=== PATIENT | male | born 1955 | race Two or more races ===

== ENCOUNTER → 2018-05-15 | Outpatient (CLI) | payer MEDICARE, MEDICAID ==
[~2018-05-15] MED LIST: GADOBUTROL 7.5 MMOL/7.5 ML VIAL ONE
== END | disposition home or self-care (01) ==
LOC: CFH 14:18
PROVIDERS: ATTEND Nurse Practitioner Family
DX: I63.9 Cerebral infarction, unspecified (principal)
CPT/HCPCS: 70544; 70549; 82565; A9585

== ENCOUNTER → 2018-05-23 | Outpatient (CLI) | payer MEDICARE, OTHER | END | disposition home or self-care (01) | LOC: CFH 09:24 | PROVIDERS: ATTEND Nurse Practitioner Family | DX: I63.9 Cerebral infarction, unspecified (principal); I10 Essential (primary) hypertension; E78.5 Hyperlipidemia, unspecified; E11.9 Type 2 diabetes mellitus without complications; R06.02 Shortness of breath | CPT/HCPCS: 78452; 93017; 93306; A9502 ==

== ENCOUNTER → 2018-08-20 | Outpatient (CLI) | payer MEDICARE, OTHER ==
[~2018-08-20] MED LIST changes: +ASPI-496 PO; +ATOR-2 PO; -GADOBUTROL 7.5 MMOL/7.5 ML VIAL ONE; +INSULIN SC; +LOSA50TA7 PO; +METF500T17 PO; +TAMS0.4C2 PO
[2018-08-20 09:45] LABS: BASOPHILS # (AUTO) 0.05 x10^3/uL (0-0.1); BASOPHILS % (AUTO) 1 % (0-1); EOSINOPHILS # (AUTO) 0.09 x10^3/uL (0-0.4); EOSINOPHILS % (AUTO) 1 % (1-7); LYMPHOCYTES # (AUTO) 1.44 x10^3/uL (1-3.4); LYMPHOCYTES % (AUTO) 21 % (22-44); MD NO; MEAN CORPUSCULAR HEMOGLOBIN 30.3 pg (27.5-34.5); MEAN CORPUSCULAR HGB CONC 32.9 g/dL (33.2-36.2); MEAN CORPUSCULAR VOLUME 92.1 fL (81-97); MEAN PLATELET VOLUME 9.4 fL (7.4-10.4); MONOCYTES # (AUTO) 0.57 x10^3/uL (0.2-0.8); MONOCYTES % (AUTO) 8 % (2-9); NEUTROPHILS # (AUTO) 4.88 x10^3/uL (1.8-6.8); NEUTROPHILS % (AUTO) 69 % (42-75); PLATELET COUNT 306 x10^3/uL (130-400); RED BLOOD COUNT 3.93 x10^6/uL (4.38-5.82)
[2018-08-20 09:46] LABS: MICROSCOPIC AUTO
[2018-08-20 09:58] LABS: ALANINE AMINOTRANSFERASE 351 U/L (12-78); ALBUMIN 3.7 g/dL (3.4-5.0); ANION GAP 4 mmol/L (5-15); CALCIUM 9.3 mg/dL (8.5-10.1); CHLORIDE 111 mmol/L (98-107); CREATININE 0.89 mg/dL (0.7-1.3)
[2018-08-20 10:00] LABS: ALKALINE PHOSPHATASE 276 U/L (45-117); BILIRUBIN,TOTAL 0.5 mg/dL (0.2-1.0)
== END | disposition home or self-care (01) ==
LOC: STAR 08:28
PROVIDERS: ATTEND Urology
DX: C61 Malignant neoplasm of prostate (principal)
CPT/HCPCS: 36415; 80053; 81001; 85025; 87086; 93005

== ENCOUNTER 2018-09-11 13:26 | Outpatient (CLI) | payer MEDICARE ==
[~2018-09-11 13:26] MED LIST changes: +LOSA50TA14 PO; -LOSA50TA7 PO; +OXYC-302 PO
== END 2018-09-11 23:59 | disposition home or self-care (01) ==
LOC: RAD 13:26
PROVIDERS: ATTEND Urology
DX: C61 Malignant neoplasm of prostate (principal); Z96.0 Presence of urogenital implants
CPT/HCPCS: 51600; 74430

== ENCOUNTER → 2018-11-13 | Outpatient (CLI) | payer MEDICARE ==
[~2018-11-13] MED LIST changes: +OMNIPAQUE 350 MG/ML, 100ML BOTTLE ONE
== END | disposition home or self-care (01) ==
LOC: PETCFH 08:16
PROVIDERS: ATTEND Urology
DX: C61 Malignant neoplasm of prostate (principal); M47.816 Spondylosis without myelopathy or radiculopathy, lumbar region
CPT/HCPCS: 74177; 78306; A9503; Q9967

== ENCOUNTER → 2018-11-19 | Outpatient (CLI) | payer MEDICARE ==
[~2018-11-19] MED LIST changes: -OMNIPAQUE 350 MG/ML, 100ML BOTTLE ONE
== END | disposition home or self-care (01) ==
LOC: CFH 07:31
PROVIDERS: ATTEND Nurse Practitioner Family
DX: K82.8 Other specified diseases of gallbladder (principal); R74.8 Abnormal levels of other serum enzymes
CPT/HCPCS: 76700

== ENCOUNTER → 2019-02-19 | Outpatient (CLI) | payer MEDICARE | END | disposition home or self-care (01) | LOC: PETCFH 13:07 | PROVIDERS: ATTEND Radiology Radiation Oncology | DX: C61 Malignant neoplasm of prostate (principal); R59.0 Localized enlarged lymph nodes | CPT/HCPCS: 78815; A9588 ==

== ENCOUNTER 2019-03-13 06:13 | Day surgery (SDC) | payer MEDICARE ==
[~2019-03-13] VITALS: Ht 167.6 cm; Wt 57.6 kg
[2019-03-13 06:52] VITALS: BP 133/65
[2019-03-13] MEDS ORDERED: SODIUM CHLORIDE 0.9% 1,000 ML IV SCH (06:55)
[2019-03-13] MEDS ORDERED: FENTANYL PF 100 MCG/2ML ONE (08:34)
[2019-03-13] MEDS ORDERED: NALOXONE 1 MG/ML, 2ML ONE (08:34)
[2019-03-13] MEDS ORDERED: FLUMAZENIL 0.1 MG/1 ML, 5ML ONE (08:34)
[2019-03-13] MEDS ORDERED: MIDAZOLAM 1 MG/ML, 5ML ONE (08:34)
== END 2019-03-13 13:00 | disposition home or self-care (01) ==
LOC: OUT 06:13 → EDSTATUS 08:00 → OUT 13:00
PROVIDERS: ATTEND Radiology Radiation Oncology
DX: R59.9 Enlarged lymph nodes, unspecified (principal); C61 Malignant neoplasm of prostate; I10 Essential (primary) hypertension; E11.9 Type 2 diabetes mellitus without complications; Z90.79 Acquired absence of other genital organ(s)
CPT/HCPCS: 49180; 77012; 82962; 88305; 99156; 99157; J2250; J3010; J2310

== ENCOUNTER 2020-03-16 10:20 | Outpatient (CLI) | payer MEDICARE | END 2020-03-16 23:59 | disposition home or self-care (01) | LOC: CFH 10:20 | PROVIDERS: ATTEND Urology | DX: Z13.820 Encounter for screening for osteoporosis (principal); M81.0 Age-related osteoporosis without current pathological fracture; M85.80 Other specified disorders of bone density and structure, unspecified site | CPT/HCPCS: 77080 ==